=== PATIENT | male | born 1975 | race Caucasian/White ===

== ENCOUNTER 2016-08-31 00:39 | Emergency (ER) | payer OTHER ==
--- NOTE | ~2016-08-31 | CR63 ---
[facility] A Service of [facility] & [facility] RADIOLOGY TEXT RESULTS PATIENT: RENAE WOODS LOCATION: [facility] : 75 UNIT #: [id number] AGE: [address]: Ruperto Stone MD SEX: M ORDER DR: [id number] [facility] [address]. [place], [place] [address] [id number] E MR#: [id number] Acc #: [id number] NAME: RENAE WOODS : 1975 SEX: M STUDY DATE/TIME: 08/31/2016 00:58 UNIT: [facility] ROOM: STUDY DESCRIPTION: CR Chest 2 View Attending Physician: Ruperto Stone M.D. Ordering Physician: Ruperto Stone M.D. MEDICAL IMAGING REPORT This report is preliminary unless electronic signature is present EXAM Chest x-ray 08/31/2016 0058 hours INDICATION Shortness of air and cough with pain with breathing after feeling a pop yesterday. Other symptoms for 2 weeks. History of hypertension and smoking. FINDINGS PA and lateral views of the chest were obtained. No comparison. Heart size is normal. There is a large hiatal hernia. There is some atelectasis in both lung bases. No pneumothorax is seen. IMPRESSION Large hiatal hernia with bibasilar atelectasis. Dictated by... Yariel John Jr., M.D. THIS IS AN ELECTRONICALLY VERIFIED REPORT Yariel John Jr., M.D. at 09/01/2016 6:40 AM MIGUEL/benjamin TD: 08/31/2016 12:31 JOB #: [id number] MEDICAL IMAGING REPORT COPY
[~2016-08-31 00:39] MED LIST: FLEXERIL PO; IBUPROFEN PO; NO MEDICATIONS; PERCOCET10 PO
== END 2016-08-31 02:45 | disposition home or self-care (01) ==
LOC: CED 00:39
DX: R07.89 Other chest pain (principal); R05 Cough; I10 Essential (primary) hypertension; F17.200 Nicotine dependence, unspecified, uncomplicated
CPT/HCPCS: 71020; 94010; 96372; 99284; J1170